=== PATIENT | female | born 1945 | race Caucasian/White ===

== ENCOUNTER 2018-03-07 18:30 | Emergency (ER) | payer MEDICARE, OTHER ==
[~2018-03-07] VITALS: Ht 149.9 cm; Wt 74.8 kg
[~2018-03-07 18:30] MED LIST: ALBUTEROL2.5 MG/0.5 INH; ASPIR 8181 MG PO; CENTRUM SILVER1 EAC2 PO; CIPRO500 MG PO; CLARITIN10 MG PO; COLACE100 MG PO; FLONASE 0.05%50 MCG NASAL; HYDROCHLOROTH12.5 M1 PO; KLOR-CON 1010 MEQ PO; LEVAQUIN 500 M500 M2 PO; LISINOPRIL20 MG PO; OXYGEN MISCELL; PHENAZOPYRIDIN200 M2 PO; PREDNISONE 10 M10 MG PO; PROTONIX40 M1 PO; SIMVASTATIN40 MG PO; SINGULAIR 10 MG10 M1 PO; SPIRIVA18 MCG INH; SYMBICORT160 MCG/4. INH; TUMS PO; TYLENOL325 MG PO; VENTOLIN HFA 1818 GM INH; VITAMIN D3400 UNIT PO; VITAMIN E400 UNIT PO
[2018-03-07] MEDS ORDERED: BACTRIM DS TAB1 EAC1 PO (19:59)
[2018-03-07 20:18] VITALS: BP 126/58
== END 2018-03-07 20:18 | disposition home or self-care (01) ==
LOC: M.ERS 18:30
DX: T63.391A Toxic effect of venom of other spider, accidental (unintentional), initial encounter (principal); L53.9 Erythematous condition, unspecified; J44.9 Chronic obstructive pulmonary disease, unspecified; I10 Essential (primary) hypertension; F17.210 Nicotine dependence, cigarettes, uncomplicated; Z88.0 Allergy status to penicillin; Z88.8 Allergy status to other drugs, medicaments and biological substances; Z91.011 Allergy to milk products; Y92.89 Other specified places as the place of occurrence of the external cause

== ENCOUNTER 2018-06-19 20:35 | Inpatient (IN) | payer MEDICARE, OTHER ==
[~2018-06-19] VITALS: Ht 160 cm; Wt 78.9 kg
[~2018-06-19 20:35] MED LIST changes: +BACTRIM DS TAB1 EAC1 PO
[2018-06-19 20:41] VITALS: BP 139/103
[2018-06-19 22:07] LABS: BE 9.9 mmol/L (-2 to +3); HCO3 37.4 mmol/L (22.0-26.0); PO2 88.9 mmHg (75.0-100.0); pH 7.358 (7.340-7.450)
[2018-06-19 22:10] LABS: PCO2 68.1 mmHg (35.0-45.0)
[2018-06-19 22:29] LABS: HEMATOCRIT 28.1 % (37.0-47.0); HEMOGLOBIN 8.8 gm/dL (12.0-15.0); MCH 30.4 pg (26.0-34.0); MCHC 31.5 g/dL (28.0-37.0); MCV 96.8 fL (80.0-100.0); MPV 8.4 fl. (7.2-11.1); NUCLEATED RBCS 0 /100WBC; PLATELET COUNT* 285 thou/uL (150-400); RDW-CV 13.1 % (10.5-14.5); WBC 26.3 thou/uL (4.0-11.0)
[2018-06-19 22:30] VITALS: BP 104/46
[2018-06-19 22:30] LABS: URINE BILIRUBIN NEGATIVE (Negative); URINE BLOOD TRACE (Negative); URINE CLARITY CLEAR; URINE COLOR YELLOW; URINE GLUCOSE-RANDOM NEGATIVE (Negative); URINE KETONES 1+ (Negative); URINE LEUKOCYTES-REFLEX NEGATIVE (Negative); URINE NITRITE-REFLEX NEGATIVE (Negative); URINE PROTEIN 2+ (Negative); URINE SPECIFIC GRAVITY 1.025 (1.005-1.030); URINE UROBILINOGEN 0.2 E.U./dl (0.2-1.0)
[2018-06-19 22:40] LABS: HYALINE CASTS 4-10 Moderate /LPF (None Seen)
[2018-06-19 22:41] LABS: AMORPHOUS PHOSPHATES Few /LPF (None Seen); MUCUS 0-3 Light strn/LPF (None Seen); PROTIME 10.7 Seconds (9.20-11.50); SQUAMOUS 4-10 Moderate /LPF (0-3); URINE RBC 3-10 Few /HPF (0-2)
[2018-06-19 22:42] LABS: ANION GAP 1 mmol/L (7-16); BACTERIA-REFLEX 1-9 Few /HPF (None Seen); BUN 16 mg/dL (7-18); CHLORIDE 102 mmol/L (98-107); CO2 38 mmol/L (21-32); CREATININE 0.7 mg/dL (0.6-1.3); GLUCOSE 228 mg/dL (70-99); POTASSIUM 3.5 mmol/L (3.5-5.1); SODIUM 141 mmol/L (136-145); URINE WBC-REFLEX 0-5 Rare /HPF (0-5)
[2018-06-19 22:53] LABS: ALBUMIN 2.5 g/dL (3.4-5.0); ALKALINE PHOSPHATASE 49 U/L (46-116); LIPASE 85 U/L (73-393); NT-PRO BRAIN NAT PEPTIDE 120 pg/mL (<300); SGOT 14 U/L (15-37); SGPT 8 U/L (30-65); TOTAL BILIRUBIN 0.3 mg/dL (<0.1-1.0); TOTAL PROTEIN 5.5 g/dL (6.4-8.2); TROPONIN-I LEVEL <0.06 ng/mL (<0.06)
[2018-06-19 22:57] LABS: ABSOLUTE LYMPHOCYTES 4.7 thou/uL (0.8-5.3); ABSOLUTE MONOCYTES 1.1 thou/uL (0.0-1.2); ABSOLUTE NEUTROPHILS 20.5 thou/uL (1.6-8.1)
[2018-06-19 22:58] LABS: PLATELET ESTIMATE ADEQUATE
[2018-06-19 23:00] LABS: HYPOCHROMASIA Occasional
[2018-06-19 23:55] VITALS: BP 110/74
[2018-06-20] VITALS (53 sets, daily range): BP systolic 82–144; BP diastolic 35–74
[2018-06-20 05:19] LABS: ABSOLUTE BASOPHILS 0.1 thou/uL (0.0-0.2); ABSOLUTE LYMPHOCYTES 4.8 thou/uL (0.8-5.3); ABSOLUTE MONOCYTES 0.3 thou/uL (0.0-1.2); ABSOLUTE NEUTROPHILS 17.9 thou/uL (1.6-8.1); BASOPHILS 0.2 %; HEMOGLOBIN 8.9 gm/dL (12.0-15.0); LYMPHOCYTES 20.9 %; MCH 29.7 pg (26.0-34.0); MCHC 30.8 g/dL (28.0-37.0); MCV 96.3 fL (80.0-100.0); MONOCYTES 1.3 %; MPV 8.4 fl. (7.2-11.1); NUCLEATED RBCS 0 /100WBC; PLATELET COUNT* 293 thou/uL (150-400); POLYS 77.6 %; RBC 3.01 mil/uL (4.20-5.00); RDW-CV 13.3 % (10.5-14.5); WBC 23.1 thou/uL (4.0-11.0)
[2018-06-20 05:54] LABS: ALBUMIN 2.5 g/dL (3.4-5.0); CALCIUM 8.5 mg/dL (8.5-10.1); CREATININE 0.6 mg/dL (0.6-1.3); POTASSIUM 3.9 mmol/L (3.5-5.1); TOTAL BILIRUBIN 0.3 mg/dL (<0.1-1.0); TOTAL PROTEIN 5.5 g/dL (6.4-8.2)
[2018-06-20 09:33] LABS: INFLUENZA A ANTIGEN None Detected (None Detect); INFLUENZA B ANTIGEN None Detected (None Detect)
[2018-06-20 09:35] LABS: BE 6.3 mmol/L (-2 to +3); HCO3 32.2 mmol/L (22.0-26.0); pH 7.397 (7.340-7.450)
[2018-06-20 09:36] LABS: PCO2 53.6 mmHg (35.0-45.0); PO2 281.1 mmHg (75.0-100.0)
--- NOTE | 2018-06-20 12:03 | EKG ---
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: JOSE ALFREDO : 1945 Requested By: Emily Perkins Order Number: [id number] MD: Bacilio Ross Measurements Intervals [place] Rate: 119 P: 77 MA: 147 QRS: 60 QRSD: 93 T: -13 QT: 345 QTc: 486 Interpretive Statements Sinus tachycardia Borderline repolarization abnormality Borderline prolonged QT interval Compared to ECG 05/26/2017 10:16:43 No significant changes Electronically Signed On 06-20-2018 12:03:19 CDT by Bacilio Ross [email or web address] <ELECTRONICALLY SIGNED> By: Bacilio Ross MD, [facility] 06/20/18 1203 45 45 Bacilio Ross MD, [facility] /EPI
--- NOTE | 2018-06-20 13:09 | 2DMMODE ---
[place] [address] 2 D/M-MODE ECHOCARDIOGRAM Name: MARYLIN MCGUIRE Room: 003[facility] IN [facility]#: [id number] Admission: 06/19/18 Attend Phys: Rush Thomson Discharge: Date of : 49 Date of Service: 06/20/18 1309 Report #: [id number] THIS REPORT FOR: //name// APPROVED REPORT Study performed: 06/20/2018 10:56:16 EXAM: Comprehensive 2D, Doppler, and color-flow Echocardiogram Patient Location: In-Patient Room #: 003 Status: routine BSA: 1.83 HR: 92 bpm BP: 125/59 mmHg Rhythm: NSR Other Information Study Quality: Good Indications Dyspnea 2D Dimensions IVSd: 9.28 (7-11mm) LVOT Diam: 20.96 (18-24mm) LVDd: 43.55 mm PWd: 9.77 (7-11mm) Ascending Ao: 34.34 (22-36mm) LVDs: 27.62 (25-40mm) Aortic Root: 31.04 mm Volumes Left Atrial Volume (Systole) LA ESV Index: 19.40 mL/m2 Aortic Valve AoV Peak Joaquín.: 2.31 m/s AO Peak Gr.: 21.40 mmHg LVOT Max P.40 mmHg AO Mean Gr.: 12.34 mmHg LVOT Mean P.80 mmHg LVOT Max V: 0.92 m/s AO V2 VTI: 44.27 cm LVOT Mean V: 0.62 m/s ANIKET (VTI): 1.51 cm2 LVOT V1 VTI: 19.38 cm Mitral Valve E/A Ratio: 0.57 MV Decel. Time: 99.45 ms MV E Max Joaquín.: 0.93 m/[place] [address] 2 D/M-MODE ECHOCARDIOGRAM Name: MARYLIN MCGUIRE Room: [address] IN .R.#: [id number] Admission: 06/19/18 Attend Phys: Rush Thomson Discharge: Date of : 49 Date of Service: 06/20/18 1309 Report #: [id number] MV PHT: 28.84 ms MVA (PHT): 7.63 cm2 TDI E/Lateral E': 9.30 E/Medial E': 8.45 Medial E' Joaquín.: 0.11 m/s Lateral E' Joaquín.: 0.10 m/s Pulmonary Valve PV Peak Joaquín.: 1.30 m/s PV Peak Gr.: 6.75 mmHg Tricuspid Valve RAP Estimate: 5.00 mmHg TR Peak Gr.: 21.34 mmHg RVSP: 26.00 mmHg PA Pressure: 26.00 mmHg Left Ventricle The left ventricle is normal size. There is normal LV segmental wall motion. There is normal left ventricular wall thickness. Left ventricular systolic function is normal. The left ventricular ejection fraction is within the normal range. LVEF is 60-65%. Grade I - abnormal relaxation pattern. Right Ventricle The right ventricle is normal size. The right ventricular systolic function is normal. Atria The left atrium size is normal. The right atrium size is normal. Aortic Valve Moderate aortic valve sclerosis. mild aortic regurgitation is present. Mild aortic stenosis. Mitral Valve Moderate mitral annular calcification. Trace mitral regurgitation. No evidence of mitral valve stenosis. Tricuspid Valve The tricuspid valve is normal in structure. Trace tricuspid regurgitation. No pulmonary hypertension. Pulmonic Valve Pulmonic valve is not well visualized. There is no pulmonic valvular [place] [address] 2 D/M-MODE ECHOCARDIOGRAM Name: MARYLIN MCGUIRE Room: [address] IN [facility]#: [id number] Admission: 06/19/18 Attend Phys: Rush Thomson Discharge: Date of : 49 Date of Service: 06/20/18 1309 Report #: [id number] Great Vessels The aortic root is normal in size. IVC is normal in size and collapses >50% with inspiration. Pericardium There is no pericardial effusion. <Conclusion> LVEF is 60-65%. Mild aortic stenosis. mild aortic regurgitation is present. <ELECTRONICALLY SIGNED> By: Bacilio Ross MD, FACC 06/20/18 1309 08 08 Bacilio Ross MD, FACC /INF
[2018-06-20 19:12] LABS: GLYCOHEMOGLOBIN (HGB A1C) 6.2 % (4.8-5.6)
[2018-06-21] VITALS (33 sets, daily range): BP systolic 81–121; BP diastolic 39–58
[2018-06-21 06:33] LABS: HEMATOCRIT 28.5 % (37.0-47.0); HEMOGLOBIN 9.1 gm/dL (12.0-15.0); MCH 30.4 pg (26.0-34.0); MCHC 31.7 g/dL (28.0-37.0); MCV 95.9 fL (80.0-100.0); MPV 8.5 fl. (7.2-11.1); RBC 2.98 mil/uL (4.20-5.00); RDW-CV 13.5 % (10.5-14.5); WBC 23.2 thou/uL (4.0-11.0)
[2018-06-21 06:46] LABS: ALBUMIN 2.4 g/dL (3.4-5.0); CALCIUM 8.1 mg/dL (8.5-10.1); CREATININE 0.6 mg/dL (0.6-1.3); MAGNESIUM 1.5 mg/dL (1.8-2.4); POTASSIUM 3.1 mmol/L (3.5-5.1); TOTAL BILIRUBIN 0.2 mg/dL (<0.1-1.0)
[2018-06-22] VITALS (22 sets, daily range): BP systolic 87–144; BP diastolic 42–79
[2018-06-22 06:49] LABS: ALBUMIN 2.5 g/dL (3.4-5.0); CALCIUM 8.5 mg/dL (8.5-10.1); CREATININE 0.6 mg/dL (0.6-1.3); MAGNESIUM 2.5 mg/dL (1.8-2.4); TOTAL BILIRUBIN 0.2 mg/dL (<0.1-1.0); TOTAL PROTEIN 6.1 g/dL (6.4-8.2)
[2018-06-22 06:51] LABS: POTASSIUM 4.4 mmol/L (3.5-5.1)
[2018-06-22 06:52] LABS: HEMATOCRIT 27.9 % (37.0-47.0); HEMOGLOBIN 8.9 gm/dL (12.0-15.0); MCH 30.7 pg (26.0-34.0); MCV 95.8 fL (80.0-100.0); MPV 9.1 fl. (7.2-11.1); RBC 2.91 mil/uL (4.20-5.00); RDW-CV 13.9 % (10.5-14.5); WBC 22.9 thou/uL (4.0-11.0)
[2018-06-22 09:08] LABS: BE -0.1 mmol/L (-2 to +3); HCO3 28.3 mmol/L (22.0-26.0); PO2 89.9 mmHg (75.0-100.0)
[2018-06-22 09:10] LABS: pH 7.248 (7.340-7.450)
[2018-06-22 09:19] LABS: PCO2 66.4 mmHg (35.0-45.0)
[2018-06-23] VITALS (11 sets, daily range): BP systolic 118–159; BP diastolic 61–72
[2018-06-23 05:49] LABS: HEMATOCRIT 27.8 % (37.0-47.0); HEMOGLOBIN 8.8 gm/dL (12.0-15.0); MCH 30.2 pg (26.0-34.0); MCHC 31.6 g/dL (28.0-37.0); MCV 95.6 fL (80.0-100.0); MPV 9.1 fl. (7.2-11.1); RBC 2.9 mil/uL (4.20-5.00); RDW-CV 13.7 % (10.5-14.5); WBC 23.4 thou/uL (4.0-11.0)
[2018-06-23 06:08] LABS: CALCIUM 8.7 mg/dL (8.5-10.1); CREATININE 0.6 mg/dL (0.6-1.3); MAGNESIUM 2.3 mg/dL (1.8-2.4); POTASSIUM 4.3 mmol/L (3.5-5.1)
[2018-06-23 08:58] LABS: BE 4.9 mmol/L (-2 to +3); HCO3 30.9 mmol/L (22.0-26.0); PO2 68.5 mmHg (75.0-100.0); pH 7.379 (7.340-7.450)
[2018-06-23 08:59] LABS: PCO2 53.6 mmHg (35.0-45.0)
[2018-06-24 08:00] VITALS: BP 140/62
[2018-06-24 10:00] VITALS: BP 147/64
[2018-06-24 10:38] LABS: HEMATOCRIT 27.9 % (37.0-47.0); HEMOGLOBIN 8.8 gm/dL (12.0-15.0); MCH 30.5 pg (26.0-34.0); MCHC 31.7 g/dL (28.0-37.0); MCV 96.3 fL (80.0-100.0); MPV 9.3 fl. (7.2-11.1); NUCLEATED RBCS 0 /100WBC; PLATELET COUNT* 292 thou/uL (150-400); WBC 24.3 thou/uL (4.0-11.0)
[2018-06-24 10:41] LABS: CALCIUM 8.2 mg/dL (8.5-10.1); CREATININE 0.6 mg/dL (0.6-1.3); POTASSIUM 4.2 mmol/L (3.5-5.1)
[2018-06-24 11:06] LABS: ABSOLUTE MONOCYTES 0.5 thou/uL (0.0-1.2); ABSOLUTE NEUTROPHILS 15.8 thou/uL (1.6-8.1); ATYPICAL LYMPHS 3 %; PLATELET ESTIMATE ADEQUATE
[2018-06-24 12:00] VITALS: BP 136/58
--- NOTE | 2018-06-24 12:30 | CON ---
[address] [address] CONSULTATION Name: MARYLIN MCGUIRE Room: [address] IN M.R.#: [id number] Admission: 06/19/18 Attend Phys: Margot Ford Discharge: Date of : 49 Report #: [id number] THIS REPORT FOR: //name// CC: Melly Thomson REASON FOR CONSULTATION: Ventilator management and respiratory failure. HISTORY OF PRESENT ILLNESS: The patient was intubated and sedated at the time of my evaluation, reviewed medical records and discussed with nursing staff. This is a 73-year-old female patient who has a known history of COPD and she has a reported history to [facility], presented to the hospital with progressive shortness of breath of 5 days' duration associated with rust colored sputum. Also she reported history of fever and chills. She denied to the ER physician having any chest pain. However, the shortness of breath is worse with exertion. The patient ended up intubated and was brought in to the ICU. Initially she was hypotensive, but that had resolved, although it is now borderline. She is on propofol that will be changed to Versed and fentanyl and hopefully that would help with her blood pressure. Medical records from previous hospitalization back in 05/2017 indicated she was admitted to this hospital with hypercapnic respiratory failure at that time. At that time, she was smoker and there is a reported history of obstructive sleep apnea and question about her compliance to medication and per the record she had 3 liter of oxygen at home for at least 4 years now. PAST MEDICAL HISTORY: History of COPD, chronic respiratory failure on oxygen at 3 liters. She had a history of left arm surgery, hysterectomy and tonsillectomy. She had a history of CLL. Obstructive sleep apnea and hypertension. FAMILY HISTORY: Unobtainable at this point. SOCIAL HISTORY: Apparently, she smokes until the day of hospitalization. Does not abuse drugs. Does not drink alcohol excessively. PAST SURGICAL HISTORY: As above. HOME MEDICATIONS: She is on Spiriva, Flonase, aspirin, Zocor and prednisone daily. According to the records, she is on Symbicort interestingly and she is on Tylenol. REVIEW OF SYSTEMS: Unobtainable due to the patient's condition. LABORATORY DATA: Her white blood count is 26.3, hemoglobin of 8.8 and platelet of 285. Her ABGs after intubation is 7.35/60/88 on assist control ventilation, rate of 16 and tidal volume of 600 with PEEP of 7. [place] 1[place] [address] CONSULTATION Name: MARYLIN MCGUIRE Room: [address] IN [facility].#: [id number] Admission: 06/19/18 Attend Phys: Margot Ford Discharge: Date of : 49 Report #: [id number] is 3.5, sodium 141, BUN of 16 and creatinine of 0.7. Her BNP was not elevated. Her chest x-rays in the ER, she had three chest x-rays that showed some possible basilar infiltrates with emphysematous changes. ET tube was adjusted after the initial intubation. EXAM GENERAL: on BIPAP awake , responsive trying to answer question , tolertaing BIPAP well VITAL SIGNS : reviewed HEAD : normocpehalic atraumatic, bippa mask in place , did not examin oral cavity , not pale not joundiced NECK: full range of movement, no masses, no LNpath , trach central CHEST: DIMISHED AIR MOVEMENT BILATERALLY EQUALLY, WHEEZES HEARD, NO CRACKLES, HEAR S1 S2 no Mumer no gallop ABD: soft lax non tender no masses felt no rebound no rigidity LL NO EDEMA, MOVING EXTREMEITES , NO CALF TENDERNESS skin: no rash LYMPHATICS: no LNpathy MOOD: anxious NEURO: AWAKE ALERT MOVING EXTREMETIES IMPRESSION: 1. Bbhep-jc-bidxyas hypoxic and hypercapnic respiratory failure. 2. Chronic obstructive pulmonary disease exacerbation. 3. Pulmonary infiltrate. At this point, the patient will be on antibiotics. I agree with the scheduled steroids IV. Continue scheduled nebulization treatments. She is currently on levofloxacin, cefepime and vancomycin. Her sedation will be changed to Versed and fentanyl and take her propofol off. Hopefully, that will help her soft blood pressure. She is on scheduled nebulization treatments. We need to followup chest x-rays and ABGs. We will order ABG for today and ABG for tomorrow and adjust vent accordingly. We need to also start weaning her oxygen down if she tolerates. Thank you for the consult. We will follow along with you. <ELECTRONICALLY SIGNED> By: Andi Garibay MD 06/24/18 1230 0916 [id number] Garibay MD /che
[2018-06-24 16:00] VITALS: BP 149/72
[2018-06-24 21:23] VITALS: BP 137/62
[2018-06-25] VITALS (7 sets, daily range): BP systolic 113–175; BP diastolic 47–78
[2018-06-26 04:28] LABS: ABSOLUTE EOSINOPHILS 0.1 thou/uL (0.0-0.7); ABSOLUTE LYMPHOCYTES 17.7 thou/uL (0.8-5.3); ABSOLUTE MONOCYTES 1.6 thou/uL (0.0-1.2); BASOPHILS 0.1 %; EOSINOPHILS 0.3 %; HEMATOCRIT 28.5 % (37.0-47.0); HEMOGLOBIN 8.9 gm/dL (12.0-15.0); LYMPHOCYTES 58.2 %; MCH 30.4 pg (26.0-34.0); MCHC 31.4 g/dL (28.0-37.0); MCV 96.9 fL (80.0-100.0); MONOCYTES 5.2 %; NUCLEATED RBCS 0 /100WBC; PLATELET COUNT* 311 thou/uL (150-400); POLYS 36.2 %; RBC 2.94 mil/uL (4.20-5.00); RDW-CV 13.4 % (10.5-14.5); WBC 30.4 thou/uL (4.0-11.0)
[2018-06-26 04:29] VITALS: BP 113/41
[2018-06-26 04:52] LABS: ALBUMIN 2.3 g/dL (3.4-5.0); CALCIUM 8.2 mg/dL (8.5-10.1); CREATININE 0.6 mg/dL (0.6-1.3); MAGNESIUM 2.1 mg/dL (1.8-2.4); POTASSIUM 3.9 mmol/L (3.5-5.1); TOTAL BILIRUBIN 0.3 mg/dL (<0.1-1.0); TOTAL PROTEIN 5.5 g/dL (6.4-8.2)
[2018-06-26 08:50] VITALS: BP 126/52
[2018-06-26 12:00] VITALS: BP 119/57
[2018-06-26 16:00] VITALS: BP 112/64
[2018-06-27 00:03] VITALS: BP 105/53
[2018-06-27 03:59] VITALS: BP 100/33
[2018-06-27] MEDS ORDERED: LEVAQUIN 750 M750 MG PO (12:05)
[2018-06-27] MEDS ORDERED: CHLORTHALIDONE25 MG PO (12:06)
[2018-06-27] MEDS ORDERED: SENNA-DOCUSATE1 EACH PO (12:07)
[2018-06-27] MEDS ORDERED: VITAMIN D1000 UNI1 PO (12:08)
[2018-06-27] MEDS ORDERED: IPRAT-ALBUT 0.5-3 ML INH (12:09)
[2018-06-27] MEDS ORDERED: PREDNISONE 10 M10 MG PO (12:10)
[2018-06-27 14:48] VITALS: BP 100/33
[2018-06-27 15:35] VITALS: BP 100/33
== END 2018-06-27 15:36 | DRG 871 ==
LOC: M.ERS 20:35 → M.TBA-ER 22:27 → M.ICU 22:27 → M.3W 06-24 13:39
PROVIDERS: Emergency Medicine; Family Medicine; Internal Medicine; Internal Medicine Critical Care Medicine; ADMIT Internal Medicine
PROC: 02HV33Z Insertion of Infusion Device into Superior Vena Cava, Percutaneous Approach (ICD-10-PCS; principal; 2018-06-19)
PROC: 5A1945Z Respiratory Ventilation, 24-96 Consecutive Hours (ICD-10-PCS; principal; 2018-06-19)
PROC: 0BH17EZ Insertion of Endotracheal Airway into Trachea, Via Natural or Artificial Opening (ICD-10-PCS; principal; 2018-06-19)
PROC: 5A09357 Assistance with Respiratory Ventilation, Less than 24 Consecutive Hours, Continuous Positive Airway Pressure (ICD-10-PCS; 2018-06-23)
DX: A41.9 Sepsis, unspecified organism (principal); J96.21 Acute and chronic respiratory failure with hypoxia; I50.31 Acute diastolic (congestive) heart failure; J15.6 Pneumonia due to other Gram-negative bacteria; J96.22 Acute and chronic respiratory failure with hypercapnia; J44.1 Chronic obstructive pulmonary disease with (acute) exacerbation; C91.10 Chronic lymphocytic leukemia of B-cell type not having achieved remission; E44.0 Moderate protein-calorie malnutrition; J44.0 Chronic obstructive pulmonary disease with (acute) lower respiratory infection; R65.20 Severe sepsis without septic shock; F17.210 Nicotine dependence, cigarettes, uncomplicated; G47.33 Obstructive sleep apnea (adult) (pediatric); I95.2 Hypotension due to drugs; E66.9 Obesity, unspecified; I11.0 Hypertensive heart disease with heart failure; K21.9 Gastro-esophageal reflux disease without esophagitis; R73.9 Hyperglycemia, unspecified; R73.03 Prediabetes; K59.00 Constipation, unspecified; Z79.82 Long term (current) use of aspirin; Z90.710 Acquired absence of both cervix and uterus; Z88.8 Allergy status to other drugs, medicaments and biological substances; Z88.0 Allergy status to penicillin; Z91.011 Allergy to milk products; Z68.30 Body mass index [BMI] 30.0-30.9, adult; Z79.899 Other long term (current) drug therapy; Z28.21 Immunization not carried out because of patient refusal

== ENCOUNTER 2018-06-27 15:03 | Inpatient (IN) | payer MEDICARE, OTHER ==
[~2018-06-27] VITALS: Ht 172.9 cm; Wt 76.2 kg
--- NOTE | ~2018-06-27 | D ---
[address] [address] DISCHARGE SUMMARY Name: MARYLIN MCGUIRE Room: [address] IN M.R.#: [id number] Admission: 06/27/18 Attend Phys: Faith Rees, Discharge: 07/09/18 Date of : 49 Report #: [id number] THIS REPORT FOR: //name// CC: Faith Gray DATE OF SERVICE: 07/09/2018 I am dictating on behalf of Dr. Faith Rees. HOSPITAL COURSE: The patient is to be discharged home today, 07/09/2018, and will have services at home, home health nursing, OT, PT and respiratory therapy. She will have, in addition to those specific services, such as oxygen per nasal cannula, keeping saturations above 90% and also have home health check magnesium levels 3 days after discharge from rehab floor. The patient to see her primary care in 1 week and then her pulmonary doctor in 2-4 weeks. The patient was given notifications to physician. The patient is to be discharged on a regular diet and to monitor weight gain. Some limitations for patient include a forward-wheeled walker for ambulation and she is on fall precautions and today 07/09/2018 is the day of her discharge. MEDICATIONS: Reviewed and reconciled by Dr. Faith Rees and myself and are available in the MAR. ADDENDUM Medications that were prescribed were albuterol 2.5 mg/0.5 mL, #1, no refills; metformin 500 mg p.o. b.i.d., #60, no refills; prednisone 20 mg for 3 days, then taper down to prednisone 10 mg for 3 days, no refills. DISCHARGE PHYSICAL EXAMINATION: GENERAL: The patient was alert, in no acute distress. VITAL SIGNS: Normal and stable. CARDIAC: Regular rate and rhythm. LUNGS: Clear to auscultation bilaterally. ABDOMEN: Normal bowel sounds. NEUROLOGIC: No focal deficits. Cranial nerves 2-12 grossly intact. SKIN: Warm and dry. Discharge plan was discussed with family. Family did participate in training prior to discharge and the patient did progress towards her goals. By: [id number] [id number] Rees DO /nt
[~2018-06-27 15:03] MED LIST changes: +CHLORTHALIDONE25 MG PO; +IPRAT-ALBUT 0.5-3 ML INH; +LEVAQUIN 750 M750 MG PO; +SENNA-DOCUSATE1 EACH PO; +VITAMIN D1000 UNI1 PO
[2018-06-27 16:22] VITALS: BP 155/53
[2018-06-27 20:20] VITALS: BP 132/67
[2018-06-28 04:01] LABS: HEMATOCRIT 30.2 % (37.0-47.0); HEMOGLOBIN 9.6 gm/dL (12.0-15.0); MCH 30.8 pg (26.0-34.0); MCHC 31.7 g/dL (28.0-37.0); MCV 97.1 fL (80.0-100.0); MPV 8.9 fl. (7.2-11.1); RBC 3.12 mil/uL (4.20-5.00); RDW-CV 13.2 % (10.5-14.5); WBC 32.3 thou/uL (4.0-11.0)
[2018-06-28 04:27] LABS: CALCIUM 8.8 mg/dL (8.5-10.1); CREATININE 0.5 mg/dL (0.6-1.3)
[2018-06-28 08:06] VITALS: BP 124/62
[2018-06-28 19:30] VITALS: BP 126/57
[2018-06-29 07:35] VITALS: BP 119/61
[2018-06-29 20:16] VITALS: BP 128/63
[2018-06-30 08:00] VITALS: BP 129/55
[2018-06-30 20:00] VITALS: BP 122/60
[2018-07-01 08:00] VITALS: BP 120/56
[2018-07-01 20:00] VITALS: BP 107/51
[2018-07-02 08:08] VITALS: BP 135/58
[2018-07-02 19:50] VITALS: BP 90/57
[2018-07-03 04:35] VITALS: BP 118/56
[2018-07-03 07:38] VITALS: BP 119/53
[2018-07-03 20:35] VITALS: BP 122/56
[2018-07-04 08:00] VITALS: BP 123/68
[2018-07-04 19:55] VITALS: BP 132/54
[2018-07-05 08:09] VITALS: BP 132/61
[2018-07-05 19:32] VITALS: BP 114/47
[2018-07-06 06:10] VITALS: BP 101/36
[2018-07-06 08:09] VITALS: BP 137/54
[2018-07-06 19:50] VITALS: BP 122/57
[2018-07-07 04:20] LABS: HEMATOCRIT 28.8 % (37.0-47.0); HEMOGLOBIN 9.1 gm/dL (12.0-15.0); MCH 30.3 pg (26.0-34.0); MCHC 31.5 g/dL (28.0-37.0); MCV 95.9 fL (80.0-100.0); MPV 8.6 fl. (7.2-11.1); RDW-CV 13.6 % (10.5-14.5)
[2018-07-07 04:42] LABS: CALCIUM 8.7 mg/dL (8.5-10.1); CREATININE 0.6 mg/dL (0.6-1.3); MAGNESIUM 1.7 mg/dL (1.8-2.4); POTASSIUM 4.2 mmol/L (3.5-5.1)
[2018-07-07 07:30] VITALS: BP 125/58
[2018-07-07 19:30] VITALS: BP 129/59
[2018-07-08 08:20] VITALS: BP 125/59
[2018-07-08 19:30] VITALS: BP 116/60
[2018-07-08 21:16] VITALS: BP 116/60
[2018-07-09 05:16] LABS: HEMATOCRIT 28.4 % (37.0-47.0); HEMOGLOBIN 8.9 gm/dL (12.0-15.0); MCH 30.4 pg (26.0-34.0); MCHC 31.2 g/dL (28.0-37.0); MCV 97.5 fL (80.0-100.0); MPV 8.7 fl. (7.2-11.1); RBC 2.91 mil/uL (4.20-5.00); RDW-CV 13.8 % (10.5-14.5); WBC 31.6 thou/uL (4.0-11.0)
[2018-07-09 05:33] LABS: ANION GAP < 0 mmol/L (7-16); BUN 19 mg/dL (7-18); CALCIUM 8.9 mg/dL (8.5-10.1); CHLORIDE 100 mmol/L (98-107); CO2 43 mmol/L (21-32); CREATININE 0.6 mg/dL (0.6-1.3); GLUCOSE 116 mg/dL (70-99); MAGNESIUM 1.6 mg/dL (1.8-2.4); POTASSIUM 4.3 mmol/L (3.5-5.1); SODIUM 142 mmol/L (136-145)
[2018-07-09 08:14] VITALS: BP 137/65
[2018-07-09 12:56] VITALS: BP 116/60
[2018-07-09 13:15] VITALS: BP 116/60
[2018-07-09 13:32] VITALS: BP 116/60
[2018-07-09] MEDS ORDERED: HYDROCHLOROTH12.5 M1 PO (13:49)
[2018-07-09 14:32] VITALS: BP 116/60
[2018-07-09] MEDS ORDERED: PREDNISONE 10 M10 MG PO (14:47)
[2018-07-09 15:45] VITALS: BP 116/60
== END 2018-07-09 15:48 | disposition home health service (06) | DRG 871 ==
LOC: M.REH 15:03
PROVIDERS: Family Medicine; Internal Medicine; ADMIT Physical Medicine & Rehabilitation
DX: A41.9 Sepsis, unspecified organism (principal); J96.21 Acute and chronic respiratory failure with hypoxia; I50.31 Acute diastolic (congestive) heart failure; J15.6 Pneumonia due to other Gram-negative bacteria; C91.10 Chronic lymphocytic leukemia of B-cell type not having achieved remission; J44.0 Chronic obstructive pulmonary disease with (acute) lower respiratory infection; R65.20 Severe sepsis without septic shock; R53.81 Other malaise; G47.33 Obstructive sleep apnea (adult) (pediatric); F17.210 Nicotine dependence, cigarettes, uncomplicated; Z60.2 Problems related to living alone; R73.9 Hyperglycemia, unspecified; R73.03 Prediabetes; I11.0 Hypertensive heart disease with heart failure; K59.00 Constipation, unspecified; T38.0X5A Adverse effect of glucocorticoids and synthetic analogues, initial encounter; I35.0 Nonrheumatic aortic (valve) stenosis; I35.1 Nonrheumatic aortic (valve) insufficiency; D63.8 Anemia in other chronic diseases classified elsewhere; Z79.899 Other long term (current) drug therapy; Z79.82 Long term (current) use of aspirin; Z88.0 Allergy status to penicillin; Z91.011 Allergy to milk products; Z90.710 Acquired absence of both cervix and uterus

== ENCOUNTER 2018-07-18 14:57 | Inpatient (IN) | payer MEDICARE, OTHER ==
[~2018-07-18] VITALS: Ht 157.5 cm; Wt 76.7 kg
[2018-07-18] VITALS (14 sets, daily range): BP systolic 113–142; BP diastolic 40–70
--- NOTE | ~2018-07-18 | CON ---
[address] [address] CONSULTATION Name: MAYNORMARYLIN M Room: [address] IN ..#: [id number] Admission: 07/18/18 Attend Phys: Kervin Mota MD Discharge: Date of : 49 Report #: [id number] THIS REPORT FOR: //name// CC: Kervin Gray DATE OF SERVICE: 07/29/2018 PRIMARY CARE PROVIDER: GIGI Hill REASON FOR CONSULTATION: Atrial fibrillation. HISTORY OF PRESENT ILLNESS: The patient is a 73-year-old female, admitted on 07/18/2018 with respiratory failure. She has a history of chronic bronchitis and pulmonary hypertension and also diastolic heart failure. She was critically ill and in the ICU and currently she is on telemetry recovering from a respiratory illness. While on telemetry, she went into atrial fibrillation with rapid ventricular response, heart rates in the 120s. She converted with IV Cardizem and is in a sinus rhythm. During her episode, she felt some dizziness, but otherwise was asymptomatic. She has no documented history of atrial arrhythmias. Currently, she has no neurologic symptoms of numbness, weakness, visual changes, or slurred speech. She because of her respiratory illness is significantly moribund and has significant debilitation because of this. She did have an echocardiogram, which demonstrated grossly normal LV function early on in her hospitalization, and she was noted to have mild aortic valve stenosis. PAST MEDICAL HISTORY: Significant for the following: Severe oxygen requiring COPD. She is an active smoker. She is on Trilogy. She has been intolerant to BiPAP for her sleep apnea. She has morbid obesity, chronic CLL, although has not required any active chemotherapy apparently, hypertension. As noted above, she has mild aortic valve stenosis in the setting of normal LV systolic function. PAST SURGICAL HISTORY: Hysterectomy and tonsillectomy. REVIEW OF SYSTEMS: GASTROINTESTINAL: She has no documented history of GI bleeding, although she does present mildly anemic. NEUROLOGIC: She denies any prior history of stroke or TIA, numbness, weakness or visual changes. CARDIOVASCULAR: Denies chest pressure or tightness. Positive dyspnea on exertion. Positive orthopnea, positive PND. EXTREMITIES: She has had some edema, which has improved. GENERAL: [place] [address] CONSULTATION Name: MAYNORMARYLIN M Room: [address]#: [id number] Admission: 07/18/18 Attend Phys: Kervin Mota MD Discharge: Date of : 49 Report #: [id number] PHYSICAL EXAMINATION: VITAL SIGNS: She is in a sinus rhythm with a heart rate of 97 and a blood pressure 131/60, respiratory rate 18 on 3 liters nasal cannula. Her weight is 77.4 kg. GENERAL: Moderately obese elderly female. She is alert. She has significant pursed lip breathing abnormality and is dyspneic with conversation. HEENT: There is no evidence of facial asymmetry. NECK: Supple, no jugular venous distention. CARDIOVASCULAR: Regular. There is a faint systolic murmur. LUNGS: Coarse breath sounds with rhonchi bilaterally. ABDOMEN: Soft, nontender. EXTREMITIES: There is a 1-2+ pretibial pedal and hand edema, which is symmetric. NEUROLOGIC: There are no focal deficits. PSYCHIATRIC: The patient has appropriate mood and affect. ECG during the atrial fibrillation was a heart rate of 152 beats per minute with nonspecific T-wave inversion and ST segment depression. Conversion, her heart rate is normal sinus rhythm with normal ST segments. LABORATORY DATA: Her hemoglobin is 8.9, platelet count is 378,000. Sodium is 144, potassium is 3.9, BUN is 19, creatinine is 0.4. GFR is 157. INR is 1.0. IMPRESSION: 1. Acute respiratory failure. This seemingly has improved with diuresis and aggressive medical therapy including steroids, oxygen and nebulizer treatment. 2. Sleep apnea. 3. Mild aortic valve stenosis. 4. Chronic diastolic heart failure. 5. Paroxysmal atrial fibrillation. She has converted with IV Cardizem and is minimally symptomatic with her episode, but because of her risk factors for stroke she presents a CHADS-VASc score of 3 and likely because of her chronic lung disease and aortic valve disease she will have recurrences. Based on this, I recommended anticoagulation with Eliquis and I will place her on oral Cardizem. We will arrange for outpatient followup. By: [id number] Menon MD, FACC /nt
[2018-07-18 15:52] LABS: HEMATOCRIT 31.8 % (37.0-47.0); HEMOGLOBIN 9.7 gm/dL (12.0-15.0); MCHC 30.5 g/dL (28.0-37.0); MCV 98.3 fL (80.0-100.0); MPV 8.7 fl. (7.2-11.1); NUCLEATED RBCS 0 /100WBC; PLATELET COUNT* 372 thou/uL (150-400); RBC 3.23 mil/uL (4.20-5.00); WBC 34.2 thou/uL (4.0-11.0)
[2018-07-18 16:01] LABS: ANION GAP 4 mmol/L (7-16); BUN 22 mg/dL (7-18); CALCIUM 9.4 mg/dL (8.5-10.1); CHLORIDE 100 mmol/L (98-107); CO2 38 mmol/L (21-32); CREATININE 0.8 mg/dL (0.6-1.3); GLUCOSE 197 mg/dL (70-99); POTASSIUM 4.2 mmol/L (3.5-5.1); SODIUM 142 mmol/L (136-145)
[2018-07-18 16:12] LABS: ALBUMIN 2.7 g/dL (3.4-5.0); ALKALINE PHOSPHATASE 53 U/L (46-116); NT-PRO BRAIN NAT PEPTIDE 185 pg/mL (<300); SGOT 34 U/L (15-37); SGPT 14 U/L (30-65); TOTAL BILIRUBIN 0.2 mg/dL (<0.1-1.0); TOTAL PROTEIN 6.8 g/dL (6.4-8.2); TROPONIN-I LEVEL <0.06 ng/mL (<0.06)
[2018-07-18 16:16] LABS: BE -0.5 mmol/L (-2 to +3)
[2018-07-18 16:18] LABS: PCO2 84.1 mmHg (35.0-45.0); pH 7.156 (7.340-7.450)
[2018-07-18 16:19] LABS: PO2 423.4 mmHg (75.0-100.0)
[2018-07-18 16:31] LABS: ABSOLUTE MONOCYTES 0.3 thou/uL (0.0-1.2); ABSOLUTE NEUTROPHILS 18.8 thou/uL (1.6-8.1); PLATELET ESTIMATE ADEQUATE
[2018-07-18 17:34] LABS: URINE BILIRUBIN NEGATIVE (Negative); URINE BLOOD TRACE (Negative); URINE CLARITY CLEAR; URINE COLOR YELLOW; URINE GLUCOSE-RANDOM TRACE (Negative); URINE KETONES 1+ (Negative); URINE LEUKOCYTES-REFLEX NEGATIVE (Negative); URINE NITRITE-REFLEX NEGATIVE (Negative); URINE PROTEIN 1+ (Negative); URINE SPECIFIC GRAVITY >= 1.030 (1.005-1.030); URINE UROBILINOGEN 0.2 E.U./dl (0.2-1.0)
[2018-07-18 17:42] LABS: AMP/METHAMP Negative (Negative); BARBITURATES Negative (Negative); BENZODIAZEPINES POSITIVE (Negative); COCAINE Negative (Negative); METHADONE Negative (Negative); OPIATES POSITIVE (Negative); PCP Negative (Negative); THC Negative (Negative)
[2018-07-19] VITALS (58 sets, daily range): BP systolic 80–157; BP diastolic 42–84
[2018-07-19 04:13] LABS: ABSOLUTE MONOCYTES 0.2 thou/uL (0.0-1.2); ABSOLUTE NEUTROPHILS 11.5 thou/uL (1.6-8.1); BASOPHILS 0.1 %; HEMATOCRIT 25.7 % (37.0-47.0); HEMOGLOBIN 8.1 gm/dL (12.0-15.0); LYMPHOCYTES 50.6 %; MCH 30.8 pg (26.0-34.0); MCHC 31.7 g/dL (28.0-37.0); MCV 97.2 fL (80.0-100.0); MONOCYTES 0.9 %; MPV 8.6 fl. (7.2-11.1); NUCLEATED RBCS 0 /100WBC; PLATELET COUNT* 309 thou/uL (150-400); POLYS 48.4 %; RBC 2.64 mil/uL (4.20-5.00); RDW-CV 13.5 % (10.5-14.5); WBC 23.7 thou/uL (4.0-11.0)
[2018-07-19 04:41] LABS: ANION GAP 5 mmol/L (7-16); BUN 15 mg/dL (7-18); CALCIUM 8.1 mg/dL (8.5-10.1); CHLORIDE 103 mmol/L (98-107); CO2 32 mmol/L (21-32); CREATININE 0.5 mg/dL (0.6-1.3); GLUCOSE 237 mg/dL (70-99); MAGNESIUM 1.2 mg/dL (1.8-2.4); NT-PRO BRAIN NAT PEPTIDE 419 pg/mL (<300); POTASSIUM 4.2 mmol/L (3.5-5.1); SODIUM 140 mmol/L (136-145); TROPONIN-I LEVEL <0.06 ng/mL (<0.06)
[2018-07-19 06:39] LABS: BE 7.2 mmol/L (-2 to +3); HCO3 33.1 mmol/L (22.0-26.0)
[2018-07-19 06:40] LABS: PCO2 55.9 mmHg (35.0-45.0)
[2018-07-19 06:43] LABS: PO2 160.8 mmHg (75.0-100.0)
[2018-07-20] VITALS (23 sets, daily range): BP systolic 109–148; BP diastolic 45–70
[2018-07-20 04:35] LABS: ABSOLUTE LYMPHOCYTES 9.9 thou/uL (0.8-5.3); ABSOLUTE MONOCYTES 0.5 thou/uL (0.0-1.2); ABSOLUTE NEUTROPHILS 10.2 thou/uL (1.6-8.1); HEMATOCRIT 24.3 % (37.0-47.0); HEMOGLOBIN 7.8 gm/dL (12.0-15.0); MCH 30.5 pg (26.0-34.0); MCHC 31.9 g/dL (28.0-37.0); MCV 95.7 fL (80.0-100.0); MONOCYTES 2.6 %; MPV 8.7 fl. (7.2-11.1); NUCLEATED RBCS 0 /100WBC; PLATELET COUNT* 294 thou/uL (150-400); POLYS 49.4 %; RBC 2.54 mil/uL (4.20-5.00); RDW-CV 13.6 % (10.5-14.5); WBC 20.6 thou/uL (4.0-11.0)
[2018-07-20 04:57] LABS: CALCIUM 7.8 mg/dL (8.5-10.1); CREATININE 0.5 mg/dL (0.6-1.3); MAGNESIUM 2.1 mg/dL (1.8-2.4); POTASSIUM 4.1 mmol/L (3.5-5.1); TOTAL BILIRUBIN 0.2 mg/dL (<0.1-1.0); TOTAL PROTEIN 5.5 g/dL (6.4-8.2)
[2018-07-20 05:51] LABS: BE 4.5 mmol/L (-2 to +3); HCO3 30.1 mmol/L (22.0-26.0); PO2 99.1 mmHg (75.0-100.0); pH 7.397 (7.340-7.450)
--- NOTE | 2018-07-20 07:06 | CON ---
[facility] [address] [place] [address] CONSULTATION Name: MAYNORMARYLIN M Room: [address] IN M.R.#: [id number] Admission: 07/18/18 Attend Phys: Kervin Mota MD Discharge: Date of : 49 Report #: [id number] THIS REPORT FOR: //name// CC: Kervin [facility] DATE OF SERVICE: 07/19/2018 REQUESTING PHYSICIAN: Kervin Mota M.D. REASON FOR CONSULTATION: Acute on chronic respiratory failure, on ventilator; known history of severe COPD. DISCUSSION: The patient is a 73-year-old woman who has been seen by our group previously when she has been hospitalized. She has a history of severe chronic obstructive pulmonary disease. Has a history of chronic respiratory failure. Possible obstructive sleep apnea. She was just discharged from this facility after she had been hospitalized for acute respiratory failure, on ventilator and then time on rehabilitation on 07/09/2018. She was brought to the Emergency Department yesterday via EMS with marked respiratory distress. O2 saturations were low. Reportedly, she had some issues with her oxygen at home. Initially had declined coming to the hospital and then did come. She did consent to intubation. Was then intubated in the ED. She is hypotensive and has been on some pressors. En route, according to the note, she was on CPAP as well as supplemental oxygen and was still in marked respiratory distress. She has a known history of chronic obstructive pulmonary disease, which is presumed to be severe chronic respiratory failure. When she was hospitalized here a year ago, Trilogy was arranged for her. However, all the other notes indicate she has been noncompliant with that. In fact, when she was hospitalized here early June, she was not tolerant to BiPAP/noninvasive ventilation at night. Unknown if she has even attempted to use it since she has been home from rehabilitation. She does have a history of tobacco abuse and it appears she resumed smoking. Exactly how much is not clear. In the past she has smoked a pack of cigarettes per day. As noted, she has had a history of prior episodes of respiratory failure, did require ventilatory support last month, but she was able to get off the ventilator after several days. She is O2 dependent. I do not believe she has been steroid dependent. I have no PFTs on her. Unknown if she follows with our group or another pulmonary [place] [address] CONSULTATION Name: MARYLIN MCGUIRE Room: [address] IN [facility]#: [id number] Admission: 07/18/18 Attend Phys: Kervin Mota MD Discharge: Date of : 49 Report #: [id number] PAST MEDICAL HISTORY: Also remarkable for morbid obesity, history of hypertension, has had a hysterectomy, tonsillectomy, possible CLL, though it does not appear she is on any treatment for that, tonsillectomy, allergies. MEDICATIONS: The information I have, her home medications have been nebulizer at home, reportedly with DuoNeb, prednisone, which I presume was a taper from her last hospital stay; Protonix, Symbicort 160/4.5 two puffs twice a day, montelukast 10 mg a day, Spiriva daily, loratadine, fluticasone nasal spray, baby aspirin, simvastatin, hydrochlorothiazide, multivitamins. FAMILY HISTORY: Unable to obtain from the patient. There is no mention of any family history in old records. REVIEW OF SYSTEMS: Unable to obtain from the patient. PHYSICAL EXAMINATION: GENERAL: She is seen in the intensive care unit. She is intubated on the ventilator. Currently is sedated with propofol, Versed. Minimal response when stimulated. She is an obese woman. SpO2 is in the high 90s. Also, has an orogastric tube in place. HEENT: Head is normocephalic. Mucous membranes do look moist. NECK: Very large and supple. HEART: Tones are somewhat distant, regular. No S3 is heard. LUNGS: Show breath sounds to be diminished. She has late expiratory wheezes heard bilaterally. Excursion is equal. No rhonchi are heard. Peak airway pressures are currently in the low 30s. ABDOMEN: Very obese, but soft. Does not appear to have any hepatosplenomegaly. She does have some ecchymotic areas noted on lower abdomen presumably from prior Lovenox or heparin injections. Wong catheter in place. EXTREMITIES: She has no clubbing. Radial pulses are present. Lower extremities have SCDs in place. She does have 1-2+ edema noted. SKIN: Warm and dry. Turgor is fair. NEUROLOGIC: Unable to ascertain mental status and neurological status. LABORATORY AND X-RAY FINDINGS: Arterial blood gases done yesterday just after intubation, she had a pH of 7.16, pCO2 of 84, pO2 of 423, bicarbonate 29 with a saturation of 99%. Blood gases just done this morning on the ventilator, pH 7.39, pCO2 of 56, pO2 of 161, bicarbonate 33 with a saturation of 98%. Her FiO2 is down to 50%, rate of 14, tidal volume of 500, PEEP of 5. On her chemistry profile, BUN is 15, creatinine of 0.5, potassium 4.2. Blood sugars were over 200. Transaminases were normal. Albumin 2.7. ProBNP 419. Troponins unremarkable. White blood cell count was 34,200 yesterday, down to 23,700 today. There are 51% lymphocytes. Blood cultures have been sent. A chest x-ray was reviewed. Endotracheal tube in position. She has some mild cardiomegaly. Has some mild prominence of markings, which were noted previously, which may be some pulmonary fibrosis. No pneumothorax, no acute [address] [place] [address] CONSULTATION Name: MARYLIN MCGUIRE Room: [address] IN [facility]#: [id number] Admission: 07/18/18 Attend Phys: Kervin Mota MD Discharge: Date of : 49 Report #: [id number] findings noted. Echocardiogram done last month, she had preserved systolic function with an EF of 60-65%. Had grade 1 diastolic dysfunction. RV was normal. She had mild aortic regurgitation and mild aortic stenosis. Trace mitral regurgitation. No pulmonary hypertension was appreciated. IMPRESSION: 1. Acute respiratory failure superimposed on chronic respiratory failure. At baseline appears to have severe chronic obstructive pulmonary disease, O2 dependent. May be becoming steroid dependent. Unfortunately, it does not appear she has been overly compliant with her regimen at home including using Trilogy/noninvasive ventilation. She has continued to smoke, though the amount is unknown. Long-term prognosis is certainly poor. 2. Chronic obstructive pulmonary disease exacerbation. Remains bronchospastic on exam. 3. Morbid obesity. 4. History of chronic lymphocytic leukemia, details not clear. Does have a leukocytosis, but over half or more lymphocytes. 5. Anemia noted previously. May be related to her chronic lymphocytic leukemia. 6. Possible sleep apnea. Could also have a component of obesity hypoventilation syndrome. 7. Ongoing tobacco abuse. RECOMMENDATIONS: 1. Continue aggressive bronchodilator therapy. IV steroids. Also, use Brovana and budesonide since she is on Symbicort at home and continue with the DuoNeb every 4 hours. 2. Wean pressors. 3. Follow up culture results. 4. Hopefully, she will have enough improvement that we can Proceed with spontaneous breathing trials and get her extubated in the next few days. 5. Long-term, need to define goals. May be more appropriate for palliative care or hospice care. <ELECTRONICALLY SIGNED> By: Antionette Santana MD 07/20/18 0706 0730 [id number] Santana MD /nt
[2018-07-20 12:26] LABS: BE 3.3 mmol/L (-2 to +3); HCO3 30.7 mmol/L (22.0-26.0); PO2 71.7 mmHg (75.0-100.0)
[2018-07-20 12:30] LABS: PCO2 62.4 mmHg (35.0-45.0)
[2018-07-21] VITALS (17 sets, daily range): BP systolic 110–155; BP diastolic 50–69
[2018-07-21 03:56] LABS: ABSOLUTE LYMPHOCYTES 9.8 thou/uL (0.8-5.3); ABSOLUTE MONOCYTES 0.6 thou/uL (0.0-1.2); ABSOLUTE NEUTROPHILS 10.5 thou/uL (1.6-8.1); HEMATOCRIT 24.1 % (37.0-47.0); HEMOGLOBIN 7.7 gm/dL (12.0-15.0); LYMPHOCYTES 46.9 %; MCH 30.6 pg (26.0-34.0); MCHC 31.9 g/dL (28.0-37.0); MCV 95.9 fL (80.0-100.0); MONOCYTES 2.8 %; NUCLEATED RBCS 0 /100WBC; PLATELET COUNT* 294 thou/uL (150-400); POLYS 50.3 %; RBC 2.51 mil/uL (4.20-5.00); RDW-CV 13.8 % (10.5-14.5); WBC 20.8 thou/uL (4.0-11.0)
[2018-07-21 04:07] LABS: CALCIUM 7.9 mg/dL (8.5-10.1); CREATININE 0.5 mg/dL (0.6-1.3); POTASSIUM 4.5 mmol/L (3.5-5.1)
[2018-07-21 08:47] LABS: BE 1.4 mmol/L (-2 to +3); HCO3 28.5 mmol/L (22.0-26.0); PO2 75.2 mmHg (75.0-100.0)
[2018-07-21 08:49] LABS: PCO2 57.9 mmHg (35.0-45.0)
[2018-07-22] VITALS (23 sets, daily range): BP systolic 98–156; BP diastolic 42–68
[2018-07-22 05:12] LABS: HEMOGLOBIN 8.2 gm/dL (12.0-15.0); MCH 30.3 pg (26.0-34.0); MCHC 31.5 g/dL (28.0-37.0); MCV 96.1 fL (80.0-100.0); MPV 8.8 fl. (7.2-11.1); NUCLEATED RBCS 0 /100WBC; PLATELET COUNT* 315 thou/uL (150-400); RBC 2.71 mil/uL (4.20-5.00); RDW-CV 13.9 % (10.5-14.5); WBC 24.7 thou/uL (4.0-11.0)
[2018-07-22 05:24] LABS: ALBUMIN 2.1 g/dL (3.4-5.0); CREATININE 0.5 mg/dL (0.6-1.3); POTASSIUM 4.4 mmol/L (3.5-5.1); TOTAL BILIRUBIN 0.2 mg/dL (<0.1-1.0); TOTAL PROTEIN 5.6 g/dL (6.4-8.2)
[2018-07-22 05:38] LABS: ABSOLUTE LYMPHOCYTES 8.2 thou/uL (0.8-5.3); ABSOLUTE MONOCYTES 0.7 thou/uL (0.0-1.2); ABSOLUTE NEUTROPHILS 15.8 thou/uL (1.6-8.1); MYELOCYTES 2 %
[2018-07-22 09:18] LABS: BE 4.7 mmol/L (-2 to +3); HCO3 32.9 mmol/L (22.0-26.0); PO2 70.7 mmHg (75.0-100.0)
[2018-07-22 09:19] LABS: PCO2 74.3 mmHg (35.0-45.0); pH 7.264 (7.340-7.450)
[2018-07-23] VITALS (24 sets, daily range): BP systolic 84–160; BP diastolic 35–86
[2018-07-23 05:58] LABS: ABSOLUTE BASOPHILS 0.1 thou/uL (0.0-0.2); ABSOLUTE LYMPHOCYTES 12.5 thou/uL (0.8-5.3); ABSOLUTE MONOCYTES 0.8 thou/uL (0.0-1.2); ABSOLUTE NEUTROPHILS 13.6 thou/uL (1.6-8.1); BASOPHILS 0.2 %; HEMATOCRIT 24.1 % (37.0-47.0); HEMOGLOBIN 7.7 gm/dL (12.0-15.0); LYMPHOCYTES 46.3 %; MCH 31.2 pg (26.0-34.0); MCV 97.5 fL (80.0-100.0); MONOCYTES 2.9 %; NUCLEATED RBCS 0 /100WBC; PLATELET COUNT* 282 thou/uL (150-400); POLYS 50.6 %; RBC 2.47 mil/uL (4.20-5.00)
[2018-07-23 06:07] LABS: CALCIUM 7.9 mg/dL (8.5-10.1); CREATININE 0.5 mg/dL (0.6-1.3); POTASSIUM 4.7 mmol/L (3.5-5.1)
[2018-07-23 06:10] LABS: PREALBUMIN 29.9 mg/dL (18.0-35.7)
[2018-07-23 13:20] LABS: BE 6.6 mmol/L (-2 to +3); HCO3 32.9 mmol/L (22.0-26.0); pH 7.382 (7.340-7.450)
[2018-07-23 13:23] LABS: PCO2 56.6 mmHg (35.0-45.0)
[2018-07-23 13:25] LABS: PO2 43.6 mmHg (75.0-100.0)
[2018-07-24] VITALS (22 sets, daily range): BP systolic 105–158; BP diastolic 44–76
[2018-07-24 05:41] LABS: HEMATOCRIT 25.1 % (37.0-47.0); HEMOGLOBIN 7.9 gm/dL (12.0-15.0); MCH 30.3 pg (26.0-34.0); MCHC 31.5 g/dL (28.0-37.0); MCV 96.1 fL (80.0-100.0); MPV 8.5 fl. (7.2-11.1); RBC 2.62 mil/uL (4.20-5.00); RDW-CV 13.9 % (10.5-14.5); WBC 33.7 thou/uL (4.0-11.0)
[2018-07-24 06:01] LABS: CREATININE 0.5 mg/dL (0.6-1.3); POTASSIUM 4.5 mmol/L (3.5-5.1)
[2018-07-24 14:48] LABS: BE 11.1 mmol/L (-2 to +3); HCO3 37.7 mmol/L (22.0-26.0); pH 7.368 (7.340-7.450)
[2018-07-25] VITALS (15 sets, daily range): BP systolic 126–172; BP diastolic 47–72
[2018-07-25 04:54] LABS: ABSOLUTE BASOPHILS 0.1 thou/uL (0.0-0.2); ABSOLUTE LYMPHOCYTES 16.1 thou/uL (0.8-5.3); ABSOLUTE MONOCYTES 0.8 thou/uL (0.0-1.2); BASOPHILS 0.3 %; HEMATOCRIT 25.9 % (37.0-47.0); HEMOGLOBIN 8.2 gm/dL (12.0-15.0); LYMPHOCYTES 44.8 %; MCH 30.4 pg (26.0-34.0); MCHC 31.7 g/dL (28.0-37.0); MCV 95.9 fL (80.0-100.0); MONOCYTES 2.2 %; MPV 8.7 fl. (7.2-11.1); NUCLEATED RBCS 0 /100WBC; PLATELET COUNT* 371 thou/uL (150-400); POLYS 52.7 %; RDW-CV 13.8 % (10.5-14.5)
[2018-07-25 05:19] LABS: CALCIUM 8.2 mg/dL (8.5-10.1); CREATININE 0.4 mg/dL (0.6-1.3); POTASSIUM 4.2 mmol/L (3.5-5.1); TOTAL BILIRUBIN 0.3 mg/dL (<0.1-1.0); TOTAL PROTEIN 5.4 g/dL (6.4-8.2)
[2018-07-25 05:20] LABS: BE 10.7 mmol/L (-2 to +3); HCO3 36.8 mmol/L (22.0-26.0); PO2 90.8 mmHg (75.0-100.0); pH 7.413 (7.340-7.450)
[2018-07-26] VITALS: BP 122/45
[2018-07-26 04:00] VITALS: BP 135/62
[2018-07-26 04:56] LABS: HEMATOCRIT 26.3 % (37.0-47.0); HEMOGLOBIN 8.3 gm/dL (12.0-15.0); MCH 30.6 pg (26.0-34.0); MCHC 31.5 g/dL (28.0-37.0); MPV 8.7 fl. (7.2-11.1); NUCLEATED RBCS 0 /100WBC; PLATELET COUNT* 366 thou/uL (150-400); RBC 2.71 mil/uL (4.20-5.00); WBC 31.7 thou/uL (4.0-11.0)
[2018-07-26 05:39] LABS: CALCIUM 8.1 mg/dL (8.5-10.1); CREATININE 0.5 mg/dL (0.6-1.3); TOTAL BILIRUBIN 0.4 mg/dL (<0.1-1.0); TOTAL PROTEIN 5.3 g/dL (6.4-8.2)
[2018-07-26 08:00] VITALS: BP 130/55
[2018-07-26 08:45] LABS: ABSOLUTE LYMPHOCYTES 21.9 thou/uL (0.8-5.3); ABSOLUTE NEUTROPHILS 9.8 thou/uL (1.6-8.1); PLATELET ESTIMATE ADEQUATE
[2018-07-26 12:00] VITALS: BP 152/63
[2018-07-26 16:00] VITALS: BP 119/53
[2018-07-26 19:00] VITALS: BP 110/45
[2018-07-27] VITALS: BP 143/69
[2018-07-27 04:00] VITALS: BP 108/66
[2018-07-27 05:21] LABS: ABSOLUTE LYMPHOCYTES 17.9 thou/uL (0.8-5.3); ABSOLUTE MONOCYTES 0.8 thou/uL (0.0-1.2); ABSOLUTE NEUTROPHILS 13.3 thou/uL (1.6-8.1); BASOPHILS 0.1 %; HEMATOCRIT 27.5 % (37.0-47.0); HEMOGLOBIN 8.9 gm/dL (12.0-15.0); LYMPHOCYTES 55.9 %; MCH 31.6 pg (26.0-34.0); MCHC 32.4 g/dL (28.0-37.0); MCV 97.5 fL (80.0-100.0); MONOCYTES 2.4 %; MPV 8.6 fl. (7.2-11.1); NUCLEATED RBCS 0 /100WBC; PLATELET COUNT* 378 thou/uL (150-400); POLYS 41.6 %; RBC 2.82 mil/uL (4.20-5.00); WBC 32.1 thou/uL (4.0-11.0)
[2018-07-27 05:55] LABS: ALBUMIN 2.1 g/dL (3.4-5.0); CALCIUM 8.3 mg/dL (8.5-10.1); CREATININE 0.4 mg/dL (0.6-1.3); POTASSIUM 3.8 mmol/L (3.5-5.1); TOTAL BILIRUBIN 0.4 mg/dL (<0.1-1.0); TOTAL PROTEIN 5.5 g/dL (6.4-8.2)
[2018-07-27 08:00] VITALS: BP 139/65
[2018-07-27 12:00] VITALS: BP 132/66
[2018-07-27 16:00] VITALS: BP 129/62
[2018-07-27 20:00] VITALS: BP 91/35
[2018-07-28] VITALS (7 sets, daily range): BP systolic 102–134; BP diastolic 42–69
[2018-07-28 05:27] LABS: CALCIUM 8.5 mg/dL (8.5-10.1); CREATININE 0.4 mg/dL (0.6-1.3); MAGNESIUM 1.7 mg/dL (1.8-2.4); POTASSIUM 3.9 mmol/L (3.5-5.1)
[2018-07-28] MEDS ORDERED: IRON325 PO (08:53)
[2018-07-28] MEDS ORDERED: LEVAQUIN 500 M500 M2 PO (10:34)
[2018-07-28] MEDS ORDERED: HUMALOG100 UNIT/1 SUBQ (10:36)
[2018-07-28] MEDS ORDERED: IPRAT-ALBUT 0.5-3 ML INH (10:37)
[2018-07-28] MEDS ORDERED: FLONASE 0.05%50 MCG NASAL (10:43)
[2018-07-29] VITALS (11 sets, daily range): BP systolic 78–140; BP diastolic 43–63
--- NOTE | 2018-07-29 11:36 | EKG ---
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 07/29/18 1135 0115 0115 David Menon MD, [facility] /EPI
[2018-07-30 00:37] VITALS: BP 126/54
[2018-07-30 04:43] VITALS: BP 144/66
[2018-07-30 05:01] LABS: HEMATOCRIT 26.3 % (37.0-47.0); HEMOGLOBIN 8.3 gm/dL (12.0-15.0); MCHC 31.6 g/dL (28.0-37.0); MPV 8.2 fl. (7.2-11.1); NUCLEATED RBCS 0 /100WBC; PLATELET COUNT* 339 thou/uL (150-400); RBC 2.68 mil/uL (4.20-5.00); RDW-CV 14.2 % (10.5-14.5); WBC 26.8 thou/uL (4.0-11.0)
[2018-07-30 05:48] LABS: ALBUMIN 2.4 g/dL (3.4-5.0); CALCIUM 8.5 mg/dL (8.5-10.1); CREATININE 0.4 mg/dL (0.6-1.3); POTASSIUM 4.1 mmol/L (3.5-5.1); TOTAL BILIRUBIN 0.4 mg/dL (<0.1-1.0); TOTAL PROTEIN 5.4 g/dL (6.4-8.2)
[2018-07-30 05:55] LABS: ABSOLUTE LYMPHOCYTES 11.8 thou/uL (0.8-5.3)
[2018-07-30 05:58] LABS: PLATELET ESTIMATE ADEQUATE
[2018-07-30 05:59] LABS: ANISOCYTOSIS 1+; POIKILOCYTOSIS 1+
[2018-07-30 08:06] VITALS: BP 145/67
[2018-07-30] MEDS ORDERED: BROVANA15 MCG/2 M INH (10:03)
[2018-07-30] MEDS ORDERED: CARDIZEM LA180 M1 PO (10:04)
[2018-07-30] MEDS ORDERED: ELIQUIS5 MG PO (10:05)
[2018-07-30 11:36] VITALS: BP 134/64
[2018-07-30 12:17] VITALS: BP 134/64
== END 2018-07-30 13:32 | DRG 870 ==
LOC: M.ERS 14:57 → M.TBA-ER 16:11 → M.ICU 16:11 → M.2W 07-25 14:00
PROVIDERS: Internal Medicine; Internal Medicine Pulmonary Disease; Personal Emergency Response Attendant; ADMIT Internal Medicine
PROC: 0BH17EZ Insertion of Endotracheal Airway into Trachea, Via Natural or Artificial Opening (ICD-10-PCS; principal; 2018-07-18)
PROC: 02HV33Z Insertion of Infusion Device into Superior Vena Cava, Percutaneous Approach (ICD-10-PCS; principal; 2018-07-18)
PROC: 5A1955Z Respiratory Ventilation, Greater than 96 Consecutive Hours (ICD-10-PCS; principal; 2018-07-18)
PROC: 02HV33Z Insertion of Infusion Device into Superior Vena Cava, Percutaneous Approach (ICD-10-PCS; 2018-07-20)
PROC: 5A09357 Assistance with Respiratory Ventilation, Less than 24 Consecutive Hours, Continuous Positive Airway Pressure (ICD-10-PCS; 2018-07-24)
PROC: 5A09357 Assistance with Respiratory Ventilation, Less than 24 Consecutive Hours, Continuous Positive Airway Pressure (ICD-10-PCS; 2018-07-27)
PROC: 5A09357 Assistance with Respiratory Ventilation, Less than 24 Consecutive Hours, Continuous Positive Airway Pressure (ICD-10-PCS; 2018-07-28)
PROC: 5A09357 Assistance with Respiratory Ventilation, Less than 24 Consecutive Hours, Continuous Positive Airway Pressure (ICD-10-PCS; 2018-07-29)
DX: A41.9 Sepsis, unspecified organism (principal); J69.0 Pneumonitis due to inhalation of food and vomit; J96.01 Acute respiratory failure with hypoxia; J96.02 Acute respiratory failure with hypercapnia; R57.9 Shock, unspecified; I50.32 Chronic diastolic (congestive) heart failure; E66.2 Morbid (severe) obesity with alveolar hypoventilation; I48.0 Paroxysmal atrial fibrillation; F17.210 Nicotine dependence, cigarettes, uncomplicated; I35.0 Nonrheumatic aortic (valve) stenosis; D64.9 Anemia, unspecified; E87.6 Hypokalemia; J43.9 Emphysema, unspecified; E87.70 Fluid overload, unspecified; I27.20 Pulmonary hypertension, unspecified; Z88.0 Allergy status to penicillin; Z91.011 Allergy to milk products; Z68.30 Body mass index [BMI] 30.0-30.9, adult; Z91.19 Patient's noncompliance with other medical treatment and regimen; Z90.710 Acquired absence of both cervix and uterus; Z79.01 Long term (current) use of anticoagulants; Z79.2 Long term (current) use of antibiotics; Z79.82 Long term (current) use of aspirin; Z79.899 Other long term (current) drug therapy; Z91.14 Patient's other noncompliance with medication regimen; Z85.6 Personal history of leukemia

== ENCOUNTER → 2018-09-17 | Outpatient (CLI) | payer MEDICARE, OTHER ==
[~2018-09-17] MED LIST changes: +BROVANA15 MCG/2 M INH; +CARDIZEM LA180 M1 PO; +ELIQUIS5 MG PO; +HUMALOG100 UNIT/1 SUBQ; +IRON325 PO
== END ==
LOC: M.WC 08:32
DX: I87.303 Chronic venous hypertension (idiopathic) without complications of bilateral lower extremity (principal); S81.802A Unspecified open wound, left lower leg, initial encounter; G47.30 Sleep apnea, unspecified; I11.0 Hypertensive heart disease with heart failure; I50.9 Heart failure, unspecified; J43.9 Emphysema, unspecified; M19.90 Unspecified osteoarthritis, unspecified site; F41.9 Anxiety disorder, unspecified; Z87.891 Personal history of nicotine dependence; Z90.710 Acquired absence of both cervix and uterus; Z79.4 Long term (current) use of insulin; W19.XXXA Unspecified fall, initial encounter; Y93.89 Activity, other specified; Y92.89 Other specified places as the place of occurrence of the external cause; Y99.8 Other external cause status

== ENCOUNTER → 2018-09-24 | Outpatient (CLI) | payer MEDICARE, OTHER | LOC: M.WC 05:18 | DX: E11.621 Type 2 diabetes mellitus with foot ulcer (principal); L89.892 Pressure ulcer of other site, stage 2; L97.522 Non-pressure chronic ulcer of other part of left foot with fat layer exposed; S81.802D Unspecified open wound, left lower leg, subsequent encounter; I87.303 Chronic venous hypertension (idiopathic) without complications of bilateral lower extremity; I11.0 Hypertensive heart disease with heart failure; I50.9 Heart failure, unspecified; G47.30 Sleep apnea, unspecified; J43.9 Emphysema, unspecified; J96.12 Chronic respiratory failure with hypercapnia; M19.90 Unspecified osteoarthritis, unspecified site; F41.9 Anxiety disorder, unspecified; Z87.891 Personal history of nicotine dependence; W18.00XD Striking against unspecified object with subsequent fall, subsequent encounter ==